=== PATIENT | male | born 1980 | race Caucasian/White ===

== ENCOUNTER 2017-10-06 11:41 | Emergency (ER) | payer OTHER ==
[2017-10-06 11:57] VITALS: RESP 18; TEMP 98.1; O2SAT 95
[2017-10-06] MEDS ORDERED: OXYCODONE/APAP 5/325 TAB ONE (13:23)
[2017-10-06] MEDS ORDERED: OXYCODONE/APAP 5/325 TAB PO ONE (13:25)
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
[2017-10-06 13:58] VITALS: BP 122/86; PULSE 74
== END 2017-10-06 14:01 | disposition home or self-care (01) ==
DX: S20.211A Contusion of right front wall of thorax, initial encounter (principal); I51.7 Cardiomegaly; V49.59XA Passenger injured in collision with other motor vehicles in traffic accident, initial encounter; Y92.410 Unspecified street and highway as the place of occurrence of the external cause; Y99.8 Other external cause status; Y93.89 Activity, other specified